=== PATIENT | male | born 1970 | race Caucasian/White ===

== ENCOUNTER 2019-03-30 10:56 | Emergency (ER) | payer OTHER ==
[2019-03-30 11:05] VITALS: TEMP 98.7; BMI 28.5
[2019-03-30] MEDS ORDERED: KETOROLAC TROMETHAMINE 30 MG/1 ML VIAL IVPUSH ONE (12:42)
[2019-03-30] MEDS ORDERED: SODIUM CHLORIDE 1,000 ML IV ONE (12:48)
[2019-03-30] MEDS ORDERED: KETOROLAC TROMETHAMINE 30 MG/1 ML VIAL ONE (14:24)
--- NOTE | 2019-03-30 14:39 | PDOC ---
Documentation entered by Iris Zarate SCRIBE, acting as scribe for Nish Soliman MD. Nish Soliman MD: This documentation has been prepared by the kseniaibeElliot Natalie, SCRIBE, under my direction and personally reviewed by me in its entirety. I confirm that the documentation accurately reflects all work, treatment, procedures, and medical decision making performed by me. History of Present Illness - General Chief Complaint: Pain, Acute Stated Complaint: DIZZY/NECK PAIN Time Seen by Provider: 03/30/19 12:29 History Source: Patient Exam Limitations: No Limitations - History of Present Illness Initial Comments: 03/30/19 12:54 The patient is a 48-year-old male, with a past medical history of NIDDM, who presents to the ED with 2 weeks of neck pain and B/L arm and B/L leg cramping/ numbness. The patient went to see his PCP 1 week ago and saw the TOW OPERATOR who placed him on Alleve and Flexiril. He was also prescribed some sort of therapy (?PT?) that he went to on Tuesday 03/27 that exacerbated his symptoms. He denies any recent trauma or strenuous activity. Denies any headache, n/v, vision cahnges, numbness/tingling). The patient denies fevers, chills, diarrhea, or abdominal pain. Denies any chest pain, palpitations or shortness of breath. Denies any weakness or dizziness. Allergies: NKA PCP: Dr. Tyrell Bryson Past History - Past Medical History Allergies/Adverse Reactions: Allergies Allergy/AdvReac Type Severity Reaction Status Date / Time No Known Allergies Allergy Verified 03/30/19 11:06 Home Medications: Ambulatory Orders Cyclobenzaprine HCl [Flexeril -] 10 mg PO DAILY 03/30/19 Gabapentin [Neurontin -] 100 mg PO BID 03/30/19 Metformin HCl [Glucophage] 500 mg PO BID 03/30/19 Naproxen 500 mg PO BID 03/30/19 COPD: No Diabetes: Yes - Immunization History Immunization Up to Date: No - Suicide/Smoking/Psychosocial Hx Smoking History: Never smoked Have you smoked in the past 12 months: No Information on smoking cessation initiated: No Hx Alcohol Use: Yes Drug/Substance Use Hx: No Review of Systems - Review of Systems Able to Perform ROS?: Yes Comments:: 03/30/19 12:55 CONSTITUTIONAL: No reported: Fever, Chills, Diaphoresis, Generalized Weakness, Malaise, Loss of Appetite HEENT: No reported: Rhinorrhea, Nasal Congestion, Throat Pain, Throat Swelling, Difficulty Swallowing, Mouth Swelling, Ear Pain, Eye Pain, Visual Changes CARDIOVASCULAR: No reported: Chest Pain, Syncope, Palpitations, Irregular Heart Rate, Lightheadedness, Peripheral Edema RESPIRATORY: No reported: Cough, Shortness of Breath, SOB with Exertion, Orthopnea, Wheezing , Stridor, Hemoptysis GASTROINTESTINAL: No reported: Abdominal pain, Abdominal Distension, Nausea, Vomiting, Diarrhea, Constipation, Melena, Hematochezia GENITOURINARY: No reported: Dysuria, Frequency, Urgency, Hesitancy, Flank Pain, Genital Pain MUSCULOSKELETAL: (+)Neck pain. No reported: Arthralgia, Joint Swelling, Back pain SKIN: No reported: Rash, Itching, Pallor HEMEATOLOGIC/IMMUNOLOGIC: No reported: Easy Bleeding, Easy Bruising, Lymphadenopathy, Frequent infections ENDOCRINE: No reported: Unexplained Weight Gain, Unexplained Weight Loss, Heat Intolerance , Cold Intolerance NEUROLOGIC: (+)B/L arm and B/L leg cramping and numbness. No reported: Headache, Focal Weakness, Vertigo, Lightheadedness, Unsteady Gait, Seizure, Mental Status Changes, Incontinence PSYCHIATRIC: No reported: Anxiety, Depression *Physical Exam - Vital Signs Last Vital Signs Temp Pulse Resp BP Pulse Ox 98.7 F 90 16 145/75 97 03/30/19 11:03 03/30/19 11:03 03/30/19 11:03 03/30/19 11:03 03/30/19 11:03 - Physical Exam Comments: 03/30/19 12:45 GENERAL: The patient is awake, alert, and fully oriented, Nontoxic - in no acute distress. HEAD: Normocephalic, atraumatic. EYES: extraocular movements intact, sclera anicteric, conjunctiva clear. ENT: Normal voice, Moist mucous membranes. NECK: Normal range of motion, supple, mild diffuse ttp on posterior neck/ bilatearl trapezius, no signifciant bony ttp on cervical spine, thoracic/lumbar spine. LUNGS: Breath sounds equal, clear to auscultation bilaterally. No wheezes, no rhonchi, no rales. HEART: Regular rate and rhythm, normal S1 and S2 without murmur, rub or gallop. ABDOMEN: Soft, nontender, normoactive bowel sounds. No guarding, no rebound. . No CVA tenderness EXTREMITIES: Normal range of motion, NEUROLOGICAL: No facial assymetry, Normal speech, movin gall 4 ext spontenously and symmetrically, neg romberg, normal gait, strength symmetric, sensation symmetric PSYCH: Normal mood, normal affect. SKIN: Warm, Dry, normal turgor, Heart Score/ECG Review - ECG Impressions Comment:: 03/30/19 14:38 Twelve-lead EKG was performed and reviewed by me. There is normal sinus rhythm with a normal rate. Rate of 83 The axis is normal. The intervals are normal. There is normal R wave progression There are no ST or T wave abnormalities. Impression: Normal twelve-lead EKG ED Treatment Course - LABORATORY CBC & Chemistry Diagram: 03/30/19 14:45 03/30/19 14:45 - RADIOLOGY Radiology Studies Ordered: Category Date Time Status CERVICAL SPINE CT W/O CONTR [CT] Stat CT Scan 03/30/19 12:42 Ordered Medical Decision Making - Medical Decision Making 03/30/19 12:43 48y M hx of NIDDM persents with neck pain and b/l arm/leg cramping. Pt states that his neck pain started several weeks ago, went to his PMD/TOW OPERATOR who gave him alleve and flexeril, was referred to some kind of therapy and after therapy he notes the b/l UE and LE cramping (alternatively dscrbied as tingling) worse when he is moving around. no associated fver/chills, urinary or bowel incontinenece, recent trauma or falls. exam non focal ddx - cervical spine stenosis ? unclear if his symptms are true parasthesias vs cramping/disocmfort will obtian ct cspine to see if there are signs of disk disease cristine obtain blood work to r/o metabolic derangement A portion of this note was documented by scribe services under my direction. I have reviewed the details of the note, within reason, and agree with the documentation with the following case summary and management plan written by me 03/30/19 16:54 pts labs reviewed pts ct reviewed - noed for minimal central disk bulge - pt currently feeling improved, resolution of pain and crmaping/tinglin gpain will dc wit hpmd and neuro fu will hav ept continue alleve and flexeril return precautions were discussed I discussed the physical exam findings, ancillary test results and final diagnoses with the patient. I answered all of the patient's questions. The patient was satisfied with the care received and felt comfortable with the discharge plan and treatment plan. The patient will call their primary care physician within 24 hours to arrange follow-up and will return to the Emergency Department with any new, persistent or worsening symptoms. *DC/Admit/Observation/Transfer Diagnosis at time of Disposition: Cervical radiculopathy, Muscle spasms of neck - Discharge Dispostion Disposition: HOME Condition at time of disposition: Improved Decision to Admit order: No - Referrals Referrals: Tyrell Bryson MD [Primary Care Provider] - - Patient Instructions Printed Discharge Instructions: DI for Cervical Radiculopathy Additional Instructions: Regrese al departamento de emergencias de inmediato con CUALQUIER sntoma nuevo , persistente o que empeore, martín dolor, entumecimiento, hormigueo, debilidad, incontinencia urinaria o intestinal o cualquier inquietud. DEBE llamar y hacer un seguimiento con haile mdico y un neurlogo en 3 a 4 michael para audrey evaluacin adicional de jackie sntomas. Los resultados fueron discutidos con usted. Asegrese de que haile mdico revise los resultados de haile evaluacin de emergencia. ==== Return to the emergency department immediately with ANY new, persistent or worsening symptoms including any worsening pain, numbness, tingling, weakness, urinary or bowel incontienece or any concerns. You MUST call and follow up with your doctor and a neurologist in 3-4 days for further evaluation of your symptoms. Results were discussed with you. Please make sure your doctor reviews the results of your emergency evaluation. Print Language: SLOVAK - Post Discharge Activity
--- NOTE | 2019-03-30 15:12 | EKG ---
Test Reason : Blood Pressure : / mmHG Vent. Rate : 083 BPM Atrial Rate : 083 BPM P-R Int : 174 ms QRS Dur : 086 ms QT Int : 372 ms P-R-T Axes : 049 021 041 degrees QTc Int : 437 ms NORMAL SINUS RHYTHM NORMAL ECG NO PREVIOUS ECGS AVAILABLE Confirmed by BECK PETIT MD ([id number]) on 03/30/2019 3:11:44 PM Referred By: Confirmed By:BECK PETIT MD
[2019-03-30 15:16] LABS: BASO % 0.5 % (0-2.0); EOS % 1.3 % (0-4.5); LYMPH % 14.9 % (8-40); MCH 30.8 pg (25.7-33.7); MCHC 34.1 g/dl (32.0-35.9); MEAN CELL VOLUME 90.1 fl (80-96); MEAN PLT VOLUME 9.9 fl (7.5-11.1); MONO % 8.7 % (3.8-10.2); NEUT % 74.6 % (42.8-82.8); RBC 5.21 M/mm3 (4.00-5.60); RDW 12.8 % (11.9-15.9); WHITE BLOOD COUNT 5.4 K/mm3 (4.0-10.0)
[2019-03-30 15:17] LABS: PLATELET COUNT 136 K/MM3 (134-434)
[2019-03-30 15:27] LABS: ALBUMIN 4.4 g/dl (3.4-5.0); BILIRUBIN,TOTAL 0.6 mg/dL (0.2-1); BLOOD UREA NITROGEN 14.5 mg/dL (7-18); CALCIUM 9.1 mg/dL (8.5-10.1); CREATININE 0.8 mg/dL (0.55-1.3); POTASSIUM 4.2 mmol/L (3.5-5.1); TOT PROT 7.4 g/dl (6.4-8.2)
[2019-03-30 15:42] LABS: URINE APPEARANCE CLEAR; URINE BILIRUBIN NEGATIVE (NEGATIVE); URINE COLOR YELLOW; URINE GLUCOSE (UA) NEGATIVE (NEGATIVE); URINE KETONE NEGATIVE (NEGATIVE); URINE LEUK ESTERASE NEGATIVE (NEGATIVE); URINE NITRITE NEGATIVE (NEGATIVE); URINE PROTEIN NEGATIVE (NEGATIVE)
[2019-03-30 17:16] VITALS: BP 125/85; PULSE 90
== END 2019-03-30 17:16 | disposition home or self-care (01) ==
LOC: JER 10:56
PROC: 3E0337Z Introduction of Electrolytic and Water Balance Substance into Peripheral Vein, Percutaneous Approach (ICD-10-PCS; principal; 2019-03-30)
PROC: 3E0333Z Introduction of Anti-inflammatory into Peripheral Vein, Percutaneous Approach (ICD-10-PCS; 2019-03-30)
DX: M54.12 Radiculopathy, cervical region (principal); M62.838 Other muscle spasm; E11.9 Type 2 diabetes mellitus without complications; Z79.84 Long term (current) use of oral hypoglycemic drugs
CPT/HCPCS: 36415; 72125-TC; 80053; 81003; 82550; 85025; 93005; 93010; 96361; 96374; 99282-25; J7030

== ENCOUNTER 2019-04-02 14:41 | Emergency (ER) | payer OTHER ==
[2019-04-02 16:08] VITALS: BMI 28.5
--- NOTE | 2019-04-02 16:42 | PDOC ---
History of Present Illness - General Chief Complaint: Back Pain Stated Complaint: LT SIDE NUMBNESS,BILATERAL LEG PAIN Time Seen by Provider: 04/02/19 15:34 History Source: Patient Exam Limitations: Language Barrier - History of Present Illness Initial Comments: 48 yo m w a hx of NIDDM presents to the ER with worsening neck pain and now the inability to ambulate after he was seen here in the ER for the same problems 3 days prior. The patient has been experiencing over 2 weeks of neck pain associated with bilateral arm and leg weakness Left worse than right, and bilateral arm and leg sensory deficits left worse than right. The patient has seen a neurologist - Dr. Rojas since his prior ER visit who escalated the patient's gabapentin dosage for pain. The patient has been taking gabapentin, naproxyn, and cyclobenzaprine for the pain but for the past two days the pain has worsened to the point where the patient cannot get out of bed or walk. He has been feeling numbness in his left arm and leg as well as left arm and leg paresthesias. The patient states most of this pain began after he was referred to a physical therapist on 03/27 who after doing physical therapy the pain instantly worsened and has been worse ever since. The patient is also beginning to experience severe urinary urgency which he has never felt before. He states that he has wet his pants multiple times bc he hasn't been able to hold in his urine. He denies losing any control of his bladder. He denies any history of IVDU. PCP: Dr. Tyrell Bryson Neurologist: Dr. Rojas Allergies: NKA, NKDA Social Hx: Drinks recreationally. Denies smoking or other substance usage. PSH: Appendectomy Past History - Past Medical History Allergies/Adverse Reactions: Allergies Allergy/AdvReac Type Severity Reaction Status Date / Time No Known Allergies Allergy Verified 04/02/19 14:50 Home Medications: Ambulatory Orders Cyclobenzaprine HCl [Flexeril -] 10 mg PO DAILY 03/30/19 Gabapentin [Neurontin -] 300 mg PO BID 03/30/19 Metformin HCl [Glucophage] 500 mg PO BID 03/30/19 Naproxen 500 mg PO BID 03/30/19 COPD: No Diabetes: Yes - Immunization History Immunization Up to Date: No - Suicide/Smoking/Psychosocial Hx Smoking History: Never smoked Have you smoked in the past 12 months: No Hx Alcohol Use: Yes Drug/Substance Use Hx: No Review of Systems - Review of Systems Able to Perform ROS?: Yes Comments:: CONSTITUTIONAL: Present: Generalized weakness, malaise Absent: fever, chills, diaphoresis, loss of appetite HEENT: Absent: rhinorrhea, nasal congestion, throat pain, throat swelling, difficulty swallowing, mouth swelling, ear pain, eye pain, visual Changes CARDIOVASCULAR: Absent: chest pain, syncope, palpitations, irregular heart rate, lightheadedness , peripheral edema RESPIRATORY: Absent: cough, shortness of breath, dyspnea with exertion, orthopnea, wheezing, stridor, hemoptysis GASTROINTESTINAL: Absent: abdominal pain, abdominal distension, nausea, vomiting, diarrhea, constipation, melena, hematochezia GENITOURINARY: Present: Urgency Absent: dysuria, frequency, hesitancy, hematuria, flank pain, genital pain MUSCULOSKELETAL: Present: arthralgia Absent: Myalgia, joint swelling SKIN: Absent: rash, itching, pallor HEMATOLOGIC/IMMUNOLOGIC: Absent: easy bleeding, easy bruising, lymphadenopathy, frequent infections ENDOCRINE: Absent: unexplained weight gain, unexplained weight loss, heat intolerance, cold intolerance NEUROLOGIC: Present: Focal weakness and parestesias, unsteady gait, bladder incontinence Absent: headache, dizziness, seizure, mental status changes, bowel incontinence PSYCHIATRIC: Absent: anxiety, depression, suicidal or homicidal ideation, hallucinations. *Physical Exam - Vital Signs Last Vital Signs Temp Pulse Resp BP Pulse Ox 98.5 F 93 H 18 103/64 95 04/02/19 15:05 04/02/19 15:05 04/02/19 15:05 04/02/19 15:05 04/02/19 15:05 - Physical Exam Comments: GENERAL: Well developed, well nourished. Awake and alert. No acute distress. HEENT: Normocephalic, atraumatic. PERRLA, EOMI. No conjunctival pallor. Sclera are non- icteric. Moist mucous membranes. Oropharynx is clear. NECK: There is significant cervical TTP. Supple. Full ROM. No JVD. Carotid pulses 2+ and symmetric, without bruits. CARDIOVASCULAR: Regular rate and rhythm. No murmurs, rubs, or gallops. Distal pulses are 2+ and symmetric. PULMONARY: No evidence of respiratory distress. Lungs clear to auscultation bilaterally. No wheezing, rales or rhonchi. ABDOMINAL: Soft. Non-tender. Non-distended. No rebound or guarding. No organomegaly. Normoactive bowel sounds. RECTAL: There is normal rectal tone. MUSCULOSKELETAL Normal range of motion at all joints. There is TTP in the cervical region as well as the b/l trapezius regions. No bony deformities or tenderness. No CVA tenderness. EXTREMITIES: No cyanosis. No clubbing. No edema. No calf tenderness. SKIN: Warm and dry. Normal capillary refill. No rashes. No jaundice. NEUROLOGICAL: Alert, awake, appropriate. Cranial nerves 2-12 intact. No deficits to light touch in face. There is decreased sensation in the left arm compared to the right. No motor deficits in the in face. There is 2/5 strength in the left leg and 3/5 strength in the right leg. The left arm has 2/5 strength, the right arm has 4/5 strength. Normoreflexic in the patellar, trapezius, and bicep regions. Normal speech. Toes are down-going bilaterally. Patient is not able to ambulate secondary to pain. PSYCHIATRIC: Cooperative. Good eye contact. Appropriate mood and affect. ED Treatment Course - LABORATORY CBC & Chemistry Diagram: 04/02/19 17:21 04/02/19 17:21 Medical Decision Making - Medical Decision Making 48 yo m w a hx of NIDDM presents to the ER with worsening neck pain and now the inability to ambulate after he was seen here in the ER for the same problems 3 days prior. The patient has been experiencing over 2 weeks of neck pain associated with bilateral arm and leg weakness Left worse than right, and bilateral arm and leg sensory deficits left worse than right. The patient has seen a neurologist - Dr. Rojas since his prior ER visit who escalated the patient's gabapentin dosage for pain. The patient has been taking gabapentin, naproxyn, and cyclobenzaprine for the pain but for the past two days the pain has worsened to the point where the patient cannot get out of bed or walk. He has been feeling numbness in his left arm and leg as well as left arm and leg paresthesias. The patient states most of this pain began after he was referred to a physical therapist on 03/27 who after doing physical therapy the pain instantly worsened and has been worse ever since. The patient is also beginning to experience severe urinary urgency which he has never felt before. He states that he has wet his pants multiple times bc he hasn't been able to hold in his urine. He denies losing any control of his bladder. He denies any history of IVDU. - Cervical CT performed 3 days ago showed mild disc bulge - Patient now cannot ambulate and is experiencing mild urinary incontinence. - There are multiple focal neurological deficits. Vital Signs Temp Pulse Resp BP Pulse Ox 98.5 F 93 H 18 103/64 95 04/02/19 15:05 04/02/19 15:05 04/02/19 15:05 04/02/19 15:05 04/02/19 15:05 DDx IBNLT: Spinal stenosis, nerve impingement, spinal epidural abscess, herniated disc Plan: Labs, ekg, analegesia, IV hydration, Cervical MRI, Neuro consult, likely admit for MRI, neuro, and neurosurgical evaluation. Neuro Consult: Paging Dr. rojsa for consult regarding this patient - Dr. Rojas agrees with plan to move forward with MRI and recommends getting an MRI of the cervical and lumbar regions. Labs unremarkable - Will admit patient for observation, MRI, Neuro and neurosurgery consult Dr. Combs - MRI from [facility] plastics fabrication supervisor. Marked abnormalities of cervical spinal cord. Abnormal signal from c2-c6/c7 Cord expansion. Not a simple cyst. THERE IS MILD CORD COMPRESSION AT C3/C4 BC CORD IS EXPANDED Neurosurgery consult - Dr. Mitchell The OR is not adequately equipped to handle this patient. Dr. Mitchell recommends transfer to tertiary care center and believes the patient would be better served and have a better outcome at a tertiary care center where they have a neurosurgery team 24 hours and a neurosurgery ICU. Will transfer patient to [facility] Dr. Brown - Neuro-Surgeon at [facility] as accepting physician. - Requests copies of CT and MRI - CD of recent radiological studies including MRI and CT's made and given to EMS for transport - Lab results, EKG, radiology reading of MRI all printed out and given to EMS to take with patient. Patient left the ER to [facility] at 12:30 am. *DC/Admit/Observation/Transfer Diagnosis at time of Disposition: Cord compression - Discharge Dispostion Disposition: TRANSFER ACUTE CARE/OTHER HOSP Condition at time of disposition: Stable Decision to Admit order: Yes - Referrals - Patient Instructions - Post Discharge Activity
[2019-04-02] MEDS ORDERED: SODIUM CHLORIDE 0.9% 500 ML INFUS.BAG IV ONE (16:44)
[2019-04-02] MEDS ORDERED: LIDOCAINE 5% TOPICAL PATCH TP ONE (16:44)
[2019-04-02] MEDS ORDERED: KETOROLAC TROMETHAMINE 60 MG/2 ML VIAL IM ONE (16:44)
[2019-04-02] MEDS ORDERED: ACETAMINOPHEN 325 MG TABLET (FP) PO ONE (16:48)
[2019-04-02] MEDS ORDERED: METHOCARBAMOL 500 MG TABLET PO ONE (16:58)
[2019-04-02] MEDS ORDERED: DEXAMETHASONE SOD PHOSPHATE 10 MG/1 ML VIAL IVPUSH ONE (17:34)
[2019-04-02 17:44] LABS: BASO % 0.6 % (0-2.0); EOS % 1.7 % (0-4.5); HEMATOCRIT 46.9 % (35.4-49); HEMOGLOBIN 15.8 GM/dL (11.7-16.9); LYMPH % 14.8 % (8-40); MCH 30.5 pg (25.7-33.7); MCHC 33.7 g/dl (32.0-35.9); MEAN CELL VOLUME 90.5 fl (80-96); MEAN PLT VOLUME 10.4 fl (7.5-11.1); MONO % 8.5 % (3.8-10.2); NEUT % 74.4 % (42.8-82.8); PLATELET COUNT 155 K/MM3 (134-434); RBC 5.18 M/mm3 (4.00-5.60); WHITE BLOOD COUNT 5.5 K/mm3 (4.0-10.0)
[2019-04-02 17:56] LABS: ALBUMIN 4.3 g/dl (3.4-5.0); ALK PHOS 87 U/L (45-117); ANION GAP 3 MMOL/L (8-16); BILIRUBIN,TOTAL 0.4 mg/dL (0.2-1); BLOOD UREA NITROGEN 16.9 mg/dL (7-18); CALCIUM 9.2 mg/dL (8.5-10.1); CHLORIDE 107 mmol/L (98-107); CO2 29 mmol/L (21-32); CREATININE 0.8 mg/dL (0.55-1.3); GLUCOSE,RANDOM 140 mg/dL (74-106); POTASSIUM 4.3 mmol/L (3.5-5.1); SGOT/AST 28 U/L (15-37); SGPT/ALT 56 U/L (13-61); SODIUM 140 mmol/L (136-145); TOT PROT 7.5 g/dl (6.4-8.2)
[2019-04-02 18:28] LABS: ERYTHROCYTE SEDIMENTATION RATE 2 mm/hr (0-10)
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
[2019-04-02] MEDS ORDERED: KETOROLAC TROMETHAMINE 60 MG/2 ML VIAL ONE (19:21)
[2019-04-02] MEDS ORDERED: DEXAMETHASONE SOD PHOSPHATE 10 MG/1 ML VIAL ONE (19:21)
[2019-04-02] MEDS ORDERED: ACETAMINOPHEN 325 MG TABLET (FP) ONE (19:21)
[2019-04-02] MEDS ORDERED: METHOCARBAMOL 500 MG TABLET ONE (19:21)
[2019-04-02] MEDS ORDERED: LIDOCAINE 5% TOPICAL PATCH ONE (19:22)
[2019-04-02] MEDS ORDERED: LIDOCAINE PATCH REMOVAL MC SCH (22:00)
[2019-04-02 22:27] VITALS: BP 128/78; PULSE 91; TEMP 99.5
--- NOTE | 2019-04-03 13:37 | EKG ---
Test Reason : Blood Pressure : / mmHG Vent. Rate : 088 BPM Atrial Rate : 088 BPM P-R Int : 192 ms QRS Dur : 080 ms QT Int : 344 ms P-R-T Axes : 047 041 060 degrees QTc Int : 416 ms NORMAL SINUS RHYTHM NORMAL ECG WHEN COMPARED WITH ECG OF 30-MAR-2019 14:23, NO SIGNIFICANT CHANGE WAS FOUND Confirmed by MAE CARVAJAL MD ([id number]) on 04/03/2019 1:36:50 PM Referred By: Confirmed By:MAE CARVAJAL MD
== END 2019-04-03 00:29 | disposition short-term general hospital (02) ==
LOC: JER 14:41 → UNDOADMOB 18:47 → JERBED 18:47
PROC: 3E0337Z Introduction of Electrolytic and Water Balance Substance into Peripheral Vein, Percutaneous Approach (ICD-10-PCS; principal; 2019-04-02)
PROC: 3E033GC Introduction of Other Therapeutic Substance into Peripheral Vein, Percutaneous Approach (ICD-10-PCS; 2019-04-02)
PROC: 3E0233Z Introduction of Anti-inflammatory into Muscle, Percutaneous Approach (ICD-10-PCS; 2019-04-02)
DX: G95.20 Unspecified cord compression (principal); E11.9 Type 2 diabetes mellitus without complications
CPT/HCPCS: 36415; 71045-TC-FY; 72141-TC; 72148-TC; 80053; 85025; 85651; 86140; 93005; 93010; 99284-25; J1100